=== PATIENT | female | born 1950 | race Caucasian/White ===

== ENCOUNTER 2019-08-03 12:15 | Outpatient (CLI) | payer MEDICARE, OTHER, SELFPAY ==
--- NOTE | 2019-08-03 12:28 | MM_ITS ---
WS: [id number] BILATERAL DIGITAL SCREENING MAMMOGRAM WITH CAD CLINICAL INFORMATION: SCREEN HISTORY: Screening mammogram. No current complaints. COMPARISON: April 26, 2018 TECHNIQUE: Bilateral CC and MLO. FINDINGS: The breast are composed of extremely dense tissue, which can limit the detection of small underlying mass lesions. No suspicious focal mass, asymmetry, calcifications, or architectural distortion. No ev idence of malignancy. A few stable punctate calcifications right breast MM/[place] [id number] IMPRESSION: BI-RADS: 2-Benign FOLLOW UP: 1 Year Follow-up Recommend return to annual screening mammography.
== END 2019-08-03 12:16 | disposition home or self-care (01) ==
LOC: RADSHAW 12:24
PROVIDERS: PCP Internal Medicine; Visit Provider Obstetrics & Gynecology
DX: Z12.31 Encounter for screening mammogram for malignant neoplasm of breast (principal)
CPT/HCPCS: 77067

== ENCOUNTER → 2019-10-02 08:50 | Outpatient (BNVA) | payer MEDICARE, OTHER, SELFPAY | PROVIDERS: PCP Internal Medicine; Visit Provider Obstetrics & Gynecology | DX: Z01.419 Encounter for gynecological examination (general) (routine) without abnormal findings (principal); Z00.00 Encounter for general adult medical examination without abnormal findings | CPT/HCPCS: 80061; 83036; 84443 ==

== ENCOUNTER → 2020-10-09 08:21 | Outpatient (BNVA) | payer MEDICARE, SELFPAY | PROVIDERS: PCP Internal Medicine; Visit Provider Obstetrics & Gynecology | DX: Z00.00 Encounter for general adult medical examination without abnormal findings (principal) | CPT/HCPCS: 80061; 83036 ==

== ENCOUNTER 2020-11-14 13:43 | Outpatient (CLI) | payer MEDICARE, SELFPAY ==
--- NOTE | 2020-11-14 14:00 | MM_ITS ---
WS: [email or web address] SCREENING DIGITAL MAMMOGRAM WITH CAD HISTORY: Z12.39 - Encounter for other screening for malignant neoplasm... COMPARISON: 08/03/2019, 04/26/2018 and 04/21/2017 Bilateral CC and MLO views submitted. Computer aided detection analyzed. Breast composition: The breasts are extremely dense, which lowers the sensitivity of mammography. The re is a new asymmetry of increased density measuring 7 mm in the lateral RIGHT breast at a middle dep th. Probably above the nipple line on the lateral projection. Cannot definitely confirm its position on the lateral projection. Additional imaging recommended. Otherwise no change. MM/[place] [id number] IMPRESSION: BI-RADS: 0-Incomplete: Need additional imaging evaluation FOLLOW UP: Need Additional Imaging RIGHT breast: Spot compression views (CC and MLO). True ML. Ultrasound to foll ow if abnormality persists.
== END 2020-11-14 13:44 | disposition home or self-care (01) ==
LOC: RADSHAW 13:51
PROVIDERS: PCP Internal Medicine; Visit Provider Obstetrics & Gynecology
DX: Z12.31 Encounter for screening mammogram for malignant neoplasm of breast (principal)
CPT/HCPCS: 77067

== ENCOUNTER 2020-11-29 08:18 | Outpatient (CLI) | payer MEDICARE, SELFPAY ==
--- NOTE | 2020-11-29 08:30 | MM_ITS ---
WS: [email or web address] ADDITIONAL VIEWS RIGHT BREAST RIGHT breast ultrasound, limited HISTORY: N64.89 - Other specified disorders of breast, follow-up screening mammogram foreign asymmetr y in the upper outer quadrant. COMPARISON: 11/14/2020, 08/03/2019 and 04/26/2018 Compression views right CC and MLO projection. True ML also submitted. Breasts are extremely dense. T he asymmetry nearly completely resolves in the upper outer quadrant after compression. Ultrasound brett l follow in this area to exclude occult neoplasm. RIGHT breast ultrasound, limited. Extremely dense fibroglandular tissue in the entire RIGHT upper outer quadrant. There is no discrete mass or shadowing. MM/[place] [id number] IMPRESSION: BI-RADS: 2-Benign FOLLOW-UP: 1 Year Follow-up
--- NOTE | 2020-11-29 09:00 | US_ITS ---
WS: [email or web address] ADDITIONAL VIEWS RIGHT BREAST RIGHT breast ultrasound, limited HISTORY: N64.89 - Other specified disorders of breast, follow-up screening mammogram foreign asymmetr y in the upper outer quadrant. COMPARISON: 11/14/2020, 08/03/2019 and 04/26/2018 Compression views right CC and MLO projection. True ML also submitted. Breasts are extremely dense. T he asymmetry nearly completely resolves in the upper outer quadrant after compression. Ultrasound brett l follow in this area to exclude occult neoplasm. RIGHT breast ultrasound, limited. Extremely dense fibroglandular tissue in the entire RIGHT upper outer quadrant. There is no discrete mass or shadowing. US/US breast RT limited* [id number] IMPRESSION: BI-RADS: 2-Benign FOLLOW-UP: 1 Year Follow-up
== END 2020-11-29 08:19 | disposition home or self-care (01) ==
LOC: RADSHAW 08:20
PROVIDERS: PCP Internal Medicine; Visit Provider Obstetrics & Gynecology
DX: N64.89 Other specified disorders of breast (principal)
CPT/HCPCS: 76642; 77065

== ENCOUNTER → 2021-10-21 12:57 | Outpatient (BNVA) | payer MEDICARE, SELFPAY | PROVIDERS: PCP Internal Medicine; Visit Provider Obstetrics & Gynecology | DX: Z12.4 Encounter for screening for malignant neoplasm of cervix (principal) | CPT/HCPCS: 87624 ==

== ENCOUNTER 2021-12-12 12:43 | Outpatient (CLI) | payer MEDICARE, SELFPAY ==
--- NOTE | 2021-12-12 13:09 | MM_ITS ---
WS: [email or web address] VIEWS: MLO and CC views both breasts. 3D digital tomosynthesis is also included in this exam. Comparison made with prior exam of 01/13/2016, 04/21/2017, 04/26/2018, 08/03/2019, 11/14/2020.. Findings: There was no sign of mass, architectural distortion or suspicious calcification in either breast. Ex tremely dense breast parenchyma bilaterally MM/[place] [id number] Impression: BI-RADS: 2-Benign FOLLOW-UP: 1 Year Follow-up This mammogram was also analyzed by the Computer Aided Detection System R2 Imag e [employer].
--- NOTE | 2021-12-12 13:09 | XR_ITS ---
WS: [id number] DEXA (DUAL ENERGY X-RAY ABSORPTIOMETRY) Bone mineral density was performed using a [employer] machine. HISTORY: Z78.0 - Asymptomatic menopausal state COMPARISON: 09/21/2018 Lumbar spine BMD (L1-L4): 0.929 g/cm2 T score: -2.1 Z score: -0.1 Total hip BMD: Left: 0.808 g/cm2. T score: -1.6 Z score: 0.2 Right: 0.809 g/cm2. T score: -1.6 Z score: 0.2 10 year probability of a major osteoporotic fracture is 10.7%. Compared to the prior study from 09/21/2018. Lumbar spine bone mineral density has decreased by 2.2%. Bilateral hips bone mineral density has decreased by 7.0%. XR/XR DEXA axial skeleton* [id number] IMPRESSION: OSTEOPENIA based upon the WHO classification for females. Significant decrease in bone mineral density within the lumbar spine and hips s beth the prior study.
== END 2021-12-12 12:44 | disposition home or self-care (01) ==
PROVIDERS: PCP Internal Medicine; Visit Provider Obstetrics & Gynecology
DX: Z13.820 Encounter for screening for osteoporosis (principal); Z12.31 Encounter for screening mammogram for malignant neoplasm of breast; Z78.0 Asymptomatic menopausal state; M85.80 Other specified disorders of bone density and structure, unspecified site
CPT/HCPCS: 77063; 77067; 77080

== ENCOUNTER → 2021-12-25 09:42 | Outpatient (BNVA) | payer MEDICARE, SELFPAY | PROVIDERS: PCP Internal Medicine; Visit Provider Obstetrics & Gynecology | DX: Z01.419 Encounter for gynecological examination (general) (routine) without abnormal findings (principal) | CPT/HCPCS: 87624 ==

== ENCOUNTER → 2022-11-30 16:00 | Outpatient (BNVA) | payer MEDICARE, SELFPAY | PROVIDERS: PCP Internal Medicine; Visit Provider Obstetrics & Gynecology | DX: Z12.4 Encounter for screening for malignant neoplasm of cervix (principal) | CPT/HCPCS: 87624 ==

== ENCOUNTER → 2022-12-02 07:43 | Outpatient (BNVA) | payer MEDICARE, SELFPAY | PROVIDERS: PCP Internal Medicine; Visit Provider Obstetrics & Gynecology | DX: D25.9 Leiomyoma of uterus, unspecified (principal) | CPT/HCPCS: 76830 ==

== ENCOUNTER 2023-01-20 10:36 | Outpatient (CLI) | payer MEDICARE, SELFPAY ==
--- NOTE | 2023-01-20 10:53 | MM_ITS ---
WS: [email or web address] Bilateral screening 3D tomosynthesis digital mammogram, 01/20/2023 Clinical Data: SCREEN Comparison: 12/12/2021, 11/29/2020, 11/14/2020, 08/03/2019, 04/26/2018, 04/21/2017, 01/13/2016, 12/31/2014, , 11/30/2012, 11/26/2011, 11/12/2010, 09/10/2009. Findings: The breast parenchymal pattern shows extreme density. No spiculated masses or clustered calcification s are seen. There are no secondary signs of carcinoma. Impression: 1. Negative bilateral mammogram unchanged. 2. Recommend annual screening mammograms. MM/[place] [id number] BIRADS: 1-Negative FOLLOW UP: 1 Year Follow-up The CAD checker and packer was used.
== END 2023-01-20 10:37 | disposition home or self-care (01) ==
LOC: RAD 10:38
PROVIDERS: PCP Internal Medicine; Visit Provider Obstetrics & Gynecology
DX: Z12.31 Encounter for screening mammogram for malignant neoplasm of breast (principal)
CPT/HCPCS: 77063; 77067

== ENCOUNTER 2023-07-20 07:51 | Outpatient (CLI) | payer MEDICARE, SELFPAY ==
--- NOTE | 2023-07-20 07:55 | CTR_ITS ---
PROCEDURE INFORMATION: Exam: CT Abdomen And Pelvis With Contrast Exam date and time: 07/20/2023 9:34 AM Age: 73 years old Clinical indication: Generalized; Patient HX: Allover abdominal pain since last September with diarrhea and constipation and nausea TECHNIQUE: Imaging protocol: Computed tomography of the abdomen and pelvis with contrast. Radiation optimization: All CT scans at this facility use at least one of these dose optimization techniques: automated exposure control; mA and/or kV adjustment per patient size (includes targeted exams where dose is matched to clinical indication); or iterative reconstruction. Contrast material: OMNI 350; Contrast volume: 100 ml; Contrast route: INTRAVENOUS (IV); COMPARISON: CT abdomen w con* [id number] 08/17/2018 9:30 AM RADIATION DOSE METRICS: Total DLP (mGy-cm): 244.31 FINDINGS: Lungs: Unchanged scarring in the lung bases. Liver: Unchanged tiny liver cysts need no follow-up. Unchanged mild, diffuse periportal edema. Unchanged moderate hepatomegaly. Otherwise, unremarkable. Gallbladder and bile ducts: Normal. No calcified stones. No ductal dilation. Pancreas: Normal. No ductal dilation. Spleen: Normal. No splenomegaly. Adrenal glands: Normal. No mass. Kidneys and ureters: Unchanged small simple renal cysts the no follow-up. Otherwise, unremarkable. Stomach and bowel: Some of the colonic wall appears thickened. This could be inflammatory and/or neoplastic. Colonoscopy is recommended. Otherwise, unremarkable. Appendix: No evidence of appendicitis. Intraperitoneal space: Unremarkable. No free air. No significant fluid collection. Vasculature: Unremarkable. No abdominal aortic aneurysm. Lymph nodes: Unremarkable. No enlarged lymph nodes. Urinary bladder: There is questionable mild focal wall thickening of the posterior and inferior urinary bladder. This could be inflammatory or neoplastic. Cystoscopy is recommended. Reproductive: Calcified uterine fibroid. Otherwise, unremarkable. Bones/joints: Unremarkable. No acute fracture. Soft tissues: Otherwise, unremarkable visualized body wall. Otherwise, unremarkable soft tissues. CT/CT abdomen pelvis w con* [id number] IMPRESSION: 1. Mild, eccentric thickening of the inferior and posterior urinary bladder wall. This was not in the field of view on the previous examination. This could be inflammatory or neoplastic, so cystoscopy is recommended. 2. Some of the colonic wall appears thickened which could be inflammatory or neoplastic, so colonoscopy is recommended. 3. Additional details as above. Unchanged.
[2023-07-20] MEDS: iohexol 350 mg/mL 100 mL Btl PO (08:48)
[2023-07-20 09:32] LABS: Blood Urea Nitrogen 17 mg/dL (8-23)
[2023-07-20] MEDS: iohexol 350 mg/mL 100 mL Btl IV (09:43)
== END 2023-07-20 07:52 | disposition home or self-care (01) ==
LOC: RAD 07:51
PROVIDERS: Radiology Neuroradiology; PCP Internal Medicine; Visit Provider Family Medicine
DX: R10.9 Unspecified abdominal pain (principal)
CPT/HCPCS: 74177; 82565; 84520; Q9967

== ENCOUNTER 2024-03-20 11:19 | Outpatient (CLI) | payer MEDICARE, SELFPAY ==
--- NOTE | 2024-03-20 11:22 | MM_ITS ---
WS: [email or web address] SCREENING DIGITAL BREAST TOMOSYNTHESIS MAMMOGRAM WITH CAD HISTORY: SCREENING COMPARISON: 01/20/2023, 12/12/2021, 08/03/2019 Bilateral CC and MLO with tomosynthesis and synthetic mammography submitted. Computer aided detection analyzed. Breast composition: The breasts are extremely dense, which lowers the sensitivity of mammography. The re is an asymmetry seen best on the LEFT MLO projection against the pectoralis muscle measuring 8 x 6 mm. This is probably retroareolar in position. No additional suspicious masses. No grouping of calci fications. MM/MM [facility] tomosynthesis [id number] IMPRESSION: BI-RADS: 0 - Incomplete: Need additional imaging evaluation FOLLOW UP: Need Additional Imaging LEFT breast: Spot compression views (CC and MLO). True ML. Ultrasound to follow if abnormality persists. LEFT MLO spot view. CC spot views against the central and medial chest wall.
== END 2024-03-20 11:20 | disposition home or self-care (01) ==
LOC: RAD 11:21
PROVIDERS: PCP Family Medicine; Visit Provider Obstetrics & Gynecology
DX: Z12.31 Encounter for screening mammogram for malignant neoplasm of breast (principal); R92.333 Mammographic heterogeneous density, bilateral breasts; N64.89 Other specified disorders of breast
CPT/HCPCS: 77063; 77067

== ENCOUNTER 2024-03-28 09:37 | Outpatient (CLI) | payer MEDICARE, SELFPAY ==
--- NOTE | 2024-03-28 09:42 | MM_ITS ---
WS: [email or web address] ADDITIONAL VIEWS LEFT MAMMOGRAM with tomosynthesis. LEFT BREAST ULTRASOUND HISTORY: LEFT BREAST asymmetry COMPARISON: 03/20/2024, 01/20/2023, 12/12/2021 LEFT MAMMOGRAM: Spot compression views and true ML with tomosynthesis and sympathetic mammography. Posterior medial asymmetry becomes less apparent on additional imaging. Due to the very extreme densi ty of the breast ultrasound will be performed. There is no distortion. No calcification. LEFT BREAST ULTRASOUND 2-D and color Doppler imaging submitted. Markedly heterogeneous background echotexture. There are a few areas of shadowing related to edge art ifact. There is no mass or increased vascularity identified. No distortion of soft tissues. MM/MM diag LT tomosynthesis [id number] IMPRESSION: BI-RADS: 2- Benign FOLLOW UP: 1 Year Follow-up Asymmetry in the LEFT breast resolves with additional imaging and no suspicious findings were identified on ultrasound.
== END 2024-03-28 09:38 | disposition home or self-care (01) ==
LOC: RAD 09:39
PROVIDERS: PCP Family Medicine; Visit Provider Family Medicine
DX: N63.20 Unspecified lump in the left breast, unspecified quadrant (principal); R92.342 Mammographic extreme density, left breast
CPT/HCPCS: 76642; 77061; G0279

== ENCOUNTER 2024-03-31 09:20 | Emergency (ER) | payer MEDICARE, SELFPAY ==
[2024-03-31 09:30] VITALS: BP 127/85; PULSE 64; RESP 17; TEMP 36.4; O2SAT 100; BMI 21.1
--- NOTE | 2024-03-31 10:52 | USCV_ITS ---
Haley Ramos Age: 73 Gender: F : 1950 Exam Date: 03/31/2024 10:58 Ordering Phys: Karine Cross MD Technologist: [employer] [place] [facility] [place]ication: Rt leg pain HISTORY: Lower extremity pain. PROCEDURES: Venous duplex imaging was performed in only the right lower extremity. The following venous structures were evaluated: common femoral vein, profunda vein, proximal portion of the greater saphenous vein, superficial femoral vein, and the popliteal vein. In addition, the posterior tibial and peroneal trunk were evaluated. FINDINGS: No evidence of DVT seen in any vessel visualized at this time. CONCLUSIONS No evidence of right lower extremity DVT. Wing Redd MD (Electronically Signed) Final Date: 31 March 2024 13:45 S
[2024-03-31 11:12] VITALS: O2SAT 99
[2024-03-31 11:21] LABS: Eosinophils % 0.6 %; Hematocrit 42.4 % (36-47); Lymphocytes # 1.3 10^3/uL (0.8-4.8); Lymphocytes % 26.4 %; Mean Corpuscular Hemoglobin 32.4 pg (27-33); Mean Corpuscular Volume 95.5 fl (85-98); Mean Platelet Volume 10.4 fL (7.4-10.4); Monocytes # 0.3 10^3/uL (0.2-0.9); Monocytes % 7.1 %; Neutrophils # 3.17 10^3/uL (1.8-7.7); Neutrophils % 65.9 %; Nucleated Red Blood Cells % 0 %; Platelet Count 207 10^3/cmm (157-399); Red Blood Count 4.44 10^6/uL (3.85-5.65); White Blood Count 4.81 10^3/uL (3.29-11.43)
[2024-03-31 11:32] LABS: INR 0.95 (0.8-1.2)
[2024-03-31 11:33] LABS: Partial Thromboplastin Time 28.9 SECONDS (23.9-36.7)
[2024-03-31 11:37] LABS: Alanine Aminotransferase 12 U/L (0-33); Albumin Level 4.5 g/dL (3.5-5.2); Alkaline Phosphatase 64 U/L (35-105); Anion Gap 17.3 (5-19); Aspartate Amino Transferase 19 U/L (0-32); Blood Urea Nitrogen 16 mg/dL (8-23); Calcium 9.8 mg/dL (8.5-10.5); Carbon Dioxide 26 mmol/L (22-29); Chloride 99 mmol/L (98-107); Creatinine Clr Calc Pharmacy 54.5146; Globulin 2.6 g/dL (1.3-4.6); Glucose 123 mg/dL (65-115); Osmolality Calculated 289 mOsm/kg (285-295); Potassium 4.3 mmol/L (3.5-5.1); Sodium 138 mmol/L (136-145); Total Bilirubin 0.7 mg/dL (0.15-1.2); Total Protein 7.1 g/dL (6.6-8.7)
--- NOTE | 2024-03-31 11:53 | ED_ITS ---
HPI - Extremity Problem 2 General: Chief complaint: Extremity Problem,Nontraumatic Stated complaint: cramping rt leg Time Seen by Provider: 03/31/24 11:00 History of Present Illness: 73-year-old female with no significant m edical problems who presents emergency room from [facility] with pain in her right calf. She has been having cramping and pain just below the knee. This been keeping her from sleeping. It has been going on for couple of days now. She went to the clinic and they sent her here because they did not have ultrasound. No chest pain. No shortness of breath. Vitals are normal on presentation. No hypoxemia. No tachycardia. No fevers. No cough. No altered mental status. Related Data Home Medications Medication Instructions Recorded Confirmed alprazolam 0.5 mg tablet 0.5 mg PO DAILY 03/31/24 03/31/24 epinephrine 0.3 mg/0.3 mL See Rx Instructions .Route .COMPLEX 03/31/24 03/31/24 injection, auto-injector Previous Rx's Medication Instructions Recorded cyclobenzaprine 5 mg tablet 5 mg PO BEDTIME PRN muscle spasm 03/31/24 #10 tabs diclofenac sodium 50 mg 50 mg PO BID PRN pain #14 tabs 03/31/24 tablet,delayed release Allergies Allergy/AdvReac Type Severity Reaction Status Date / Time No Known Allergies Allergy Verified 11/30/22 15:21 Review of Systems 2 Narrative: Constitutional symptoms: Negative except as documented in HPI. Skin symptoms: Negative except as documented in HPI. Eye symptoms: Negative except as documented in HPI. ENMT symptoms: Negative except as documented in HPI. Respiratory symptoms: Negative except as documented in HPI. Cardiovascular symptoms: Negative except as documented in HPI. Gastrointestinal symptoms: Negative except as documented in HPI. Genitourinary symptoms: Negative except as documented in HPI. Musculoskeletal symptoms: Negative except as documented in HPI. Neurologic symptoms: Negative except as documented in HPI. Psychiatric symptoms: Negative except as documented in HPI. Endocrine symptoms: Negative except as documented in HPI. PFSH ED 2 PFSH: Medical History No pertinent past medical history Denies diabetes, asthma, hypertension, seizures, DVT/PE PCP: Dr. Evangelista Surgical History H/O breast surgery Left breast benign cyst removal at age 28 S/P cataract extraction bilateral in 2018 S/P eye surgery 2018, right eye for retinal detatchment Family History Mother Stroke Heart disease Father Lung cancer he was a smoker Son Hypertension Colon cancer Diagnosed in 2018 at age 41 Daughter Factor 5 Leiden mutation, heterozygous Denies family history of Cervical cancer Ovarian cancer Diabetes DVT (deep venous thrombosis) Hyperlipidemia Breast cancer Pulmonary embolism Uterine cancer Thyroid condition Social History Smoking and tobacco/nicotine status: never used tobacco/nicotine Alcohol intake: unknown Substance/Drug Use: unknown Physical Exam 2 Narrative: EXAM NARRATIVE: General: Alert, no acute distress. Skin: Warm, dry. Head: Normocephalic, atraumatic. Neck: Supple, trachea midline. Eye: Extraocular movements are intact. Ears, nose, mouth and throat: mucosa moist. Cardiovascular: Regular, Normal peripheral perfusion. Respiratory: Lungs are clear to auscultation, respirations are non-labored, breath sounds are equal, Symmetrical chest wall expansion. Gastrointestinal: Soft, Nontender, Non distended Musculoskeletal: Normal ROM, no deformity. Neurological: Alert and oriented, No focal neurological deficit observed. Psychiatric: Cooperative, appropriate mood & affect. Course 2 Vital Signs: Vital signs: Vital Signs Temperature 97.6 F 03/31/24 09:30 Pulse Rate 64 03/31/24 09:30 Respiratory Rate 17 03/31/24 09:30 Blood Pressure 127/85 03/31/24 09:30 Pulse Oximetry 99 03/31/24 11:12 Oxygen Delivery Me thod Room Air 03/31/24 11:12 MDM - Extremity (Nontraumatic) Medical Decision Making Medical decision making: Differential diagnosis including but not limited to and based on the above HPI, review of systems and physical exam: Would have concern for DVT. She was sent here for an ultrasound to rule that out. Also ordered basic lab work to rule out any kind of electrolyte abnormalities that might be causing her cramping. Orders placed to evaluate differential diagnosis based on the above differential, HPI and physical exam Ultrasound of the left lower extremity shows no DVT. Lab Review: Laboratory results were reviewed and interpreted by myself the emergency room physician. No leukocytosis. No anemia. No renal failure. No electrolyte abnormalities. I reviewed the patient's medical record. Reexamination: Patient remained stable. No increased work of breathing. No altered mental status. No focal motor deficits. Assessment and plan: Calf pain Muscle cramping ? Anti-inflammatory and muscle laxer called in - Discharged home - Discussed plan with patient. Answered any questions. - Evaluation and treatment of this problem were appropriate in the emergency setting. Lab Data 03/31/24 11:15 03/31/24 11:15 Laboratory Results WBC 4.81 10^3/uL (3.29-11.43) 03/31/24 11:15 RBC 4.44 10^6/uL (3.85-5.65) 03/31/24 11:15 Hgb 14.40 g/dL (11.27-16.99) 03/31/24 11:15 Hct 42.4 % (36-47) 03/31/24 11:15 MCV 95.5 fl (85-98) 03/31/24 11:15 MCH 32.4 pg (27-33) 03/31/24 11:15 MCHC 34.0 g/dL (30-55) 03/31/24 11:15 RDW 12.0 % (12.1-15.1) L 03/31/24 11:15 Plt Count 207 10^3/cmm (157-399) 03/31/24 11:15 MPV 10.4 fL (7.4-10.4) 03/31/24 11:15 Neut % (Auto) 65.9 % 03/31/24 11:15 Lymph % (Auto) 26.4 % 03/31/24 11:15 [place] % (Auto) 7.1 % 03/31/24 11:15 Eos % (Auto) 0.6 % 03/31/24 11:15 Baso % (Auto) 0.0 % 03/31/24 11:15 Neut # (Auto) 3.17 10^3/uL (1.8-7.7) 03/31/24 11:15 Lymph # (Auto) 1.3 10^3/uL (0.8-4.8) 03/31/24 11:15 [place] # (Auto) 0.3 10^3/uL (0.2-0.9) 03/31/24 11:15 Eos # (Auto) 0.0 10^3/uL (0.0-0.8) 03/31/24 11:15 Baso # (Auto) 0.0 10^3/uL (0.0-0.1) 03/31/24 11:15 Nucleated RBC % (auto) 0 % 03/31/24 11:15 Nucleated RBCs # 0.0 /100WBC 03/31/24 11:15 PT 13.40 SECONDS (12.1-14.9) 03/31/24 11:15 INR 0.95 (0.8-1.2) 03/31/24 11:15 APTT 28.9 SECONDS (23.9-36.7) 03/31/24 11:15 Sodium 138 mmol/L (136-145) 03/31/24 11:15 Potassium 4.3 mmol/L (3.5-5.1) 03/31/24 11:15 Chloride 99 mmol/L (98-107) 03/31/24 11:15 Carbon Dioxide 26 mmol/L (22-29) 03/31/24 11:15 Anion Gap 17.3 (5-19) 03/31/24 11:15 BUN 16 mg/dL (8-23) 03/31/24 11:15 Creatinine 0.7 mg/dL (0.5-0.9) 03/31/24 11:15 GFR Calculation Not Reportable 03/31/24 11:15 Glucose 123 mg/dL (65-115) H 03/31/24 11:15 Calculated Osmolality 289 mOsm/kg (285-295) 03/31/24 11:15 Calcium 9.8 mg/dL (8.5-10.5) 03/31/24 11:15 Total Bilirubin 0.7 mg/dL (0.15-1.2) 03/31/24 11:15 AST 19 U/L (0-32) 03/31/24 11:15 ALT 12 U/L (0-33) 03/31/24 11:15 Alkaline Phosphatase 64 U/L (35-105) 03/31/24 11:15 Total Protein 7.1 g/dL (6.6-8.7) 03/31/24 11:15 Albumin 4.5 g/dL (3.5-5.2) 03/31/24 11:15 Globulin 2.6 g/dL (1.3-4.6) 03/31/24 11:15 All radiology interpretation(s) finalized by discharge Discharge Plan Discharge Patient Disposition: Home Clinical Impression: Calf pain, Muscle cramps Condition: Stable Prescriptions: New cyclobenzaprine 5 mg tablet 5 mg PO BEDTIME PRN (Reason: muscle spasm) Qty: 10 0RF diclofenac sodium 50 mg tablet,delayed release (DR/EC) 50 mg PO BID PRN (Reason: pain) Qty: 14 0RF No Action alprazolam 0.5 mg tablet 0.5 mg PO DAILY epinephrine 0.3 mg/0.3 mL auto-injector See Rx Instructions .ROUTE .COMPLEX Rx Instructions: INJECT 1 SINGLE-DOSE DEVICE NEEDED FOR SEVERE ALLERGIC REACTION Discharge Orders: Discharge ED (Routine); Ordered 03/31/24 Ordered By: Karine Cross Referrals: Aki Russo MD [Primary Care Provider] - Discharge Diet: Usual diet Discharge Activity: Increase activity as tolerated Patient Instructions: Opioid Safety, Pain Management Activity Restrictions/Additional Instructions: Thank you for choosing [facility] for your healthcare needs today. Please realize this is an emergency room and that we are providing you with a medical screening exam and this may not be complete and all inclusive of all the testing and or work up that you may need to determine your ailment or severity of your illness. You have been screened and evaluated and felt safe for discharge. Health conditions do change or evolve sometimes and as such it is important that you follow up with your Primary Doctor to be re checked, 3-5 days is a general good time frame for follow up. You are always welcome to return to the ED for re assessment if your symptoms are worsening or you have new concerns Coding Level of Care Code ED Animal Doctor for Troy Villegas
[2024-03-31 12:13] VITALS: BP 123/69; PULSE 71; O2SAT 99
== END 2024-03-31 12:14 | disposition home or self-care (01) ==
PROVIDERS: Emergency Provider Emergency Medicine; PCP Family Medicine
DX: M79.604 Pain in right leg (principal); M62.831 Muscle spasm of calf
CPT/HCPCS: 36415; 80053; 85025; 85610; 85730; 93971; 99284